=== PATIENT | female | born 1945 | race Caucasian/White ===

== ENCOUNTER 2019-05-25 10:26 | Inpatient (IN) | payer MEDICARE ==
[2019-05-25] MEDS ORDERED: Unasyn 3GM / NaCl 100ML 3 GM/100 ML IVPB IV STA (10:35)
[2019-05-25 10:55] LABS: ALBUMIN 3.9 g/dL (3.5-5.0); ANION GAP 30.3 MEQ/L (5-15); BILIRUBIN,TOTAL 1.4 mg/dL (0.2-1.3); Creatinine 1 1.14 mg/dL (0.52-1.04); Total Protein 7.1 g/dL (6.3-8.2)
[2019-05-25] MEDS ORDERED: Unasyn 3GM / NaCl 100ML 3 GM/100 ML IVPB ONE (10:56)
[2019-05-25 11:02] LABS: Hematocrit 46.6 % (35-47); Hemoglobin 14.9 gm/dl (12.0-16.0); Mean Corpuscular Hemoglobin 29.7 pg (26-32); Mean Platelet Volume 10.7 fl (6-9.5); Platelet Count 254 K/mm3 (150-450); Red Blood Count 5.01 M/mm3 (4.1-5.4); Red Cell Distribution Width 14.5 % (11.5-14.0); White Blood Count 8.6 K/mm3 (4.0-10.5)
[2019-05-25 11:08] LABS: A-aADO2 -27; ABG HEMOGLOBIN 15.5; ABG POTASSIUM 3.8 (3.5-5.1); ARTERIAL BLD GAS O2 SATURATION 100.2 % (95-100); ARTERIAL BLOOD GAS BASE EXCESS 0.5 (-2.0-2.0); ARTERIAL BLOOD GAS FIO2 21 %; ARTERIAL BLOOD GAS PCO2 23 mmHg (35-45); ARTERIAL BLOOD GAS PO2 148 mmHg (75-100); CARBOXYHEMOGLOBIN 2.7 % THgb (0.0-6.9); HCO3- 20.6 (22-28); HGB O2 SAT 96.6 g/dF (94-100); Methhemoglobin 0.9 % (1.4-1.5); paO2 pAO1 1.22
[2019-05-25] MEDS ORDERED: Merrem 1 GM IV ONE (11:08)
[2019-05-25] MEDS ORDERED: Sodium Chloride 0.9% 100 ML IVPB 100 ML IV ONE (11:08)
[2019-05-25 11:09] LABS: ARTERIAL BLOOD GAS pH 7.56 (7.35-7.45)
[2019-05-25] MEDS ORDERED: Merrem 1 GM 1 G in Sodium Chloride 100ML MINI-BAG PLUS 100 ML IV STA (11:10)
[2019-05-25] MEDS: Sodium Chloride 0.9% 1000 ML 1,000 ML IV SCH ×3 (11:13→18:34)
--- NOTE | 2019-05-25 11:16 | ERPHSYRPT ---
- History of Present Illness Time Seen by Provider: 05/25/19 11:13 Source: EMS, police Exam Limitations: clinical condition Patient Subjective Stated Complaint: pt was found on by a neighbor on front [address], she was seen by friend at 1800 last night, unsure of how long she was outside. 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 pt is very thin, has multi bruising, she has skin tear to left arm and elbow with bruising has bruising to right arms, has left eye with bruising and redenss, both knees with bruising, abrasion to nose, pupils 2mm sluggish, pt moves eys to follow nurse Physician History: pt was found on by a neighbor on [address] [facility], she was seen by friend at 1800 last night, unsure of how long she was outside. 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 and she is unable to speak and give history, Timing/Duration: today Severity: severe (temperature 81 F) Allergies/Adverse Reactions: Penicillins Allergy (Verified 05/25/19 11:07) Sulfa (Sulfonamide Antibiotics) Allergy (Verified 05/25/19 11:07) Home Medications: Unobtainable 05/25/19 [History] Hx Tetanus, Diphtheria Vaccination/Date Given: No Hx Influenza Vaccination/Date Given: No (unknown) Hx Pneumococcal Vaccination/Date Given: No Immunizations Up to Date: (unknown) - Review of Systems All Other Systems: Unable due to condition - Past Medical History Pertinent Past Medical History: Yes Other Medical History: tumor in throat - Past Surgical History Past Surgical History: (unknown) - Social History Smoking Status: Unknown if ever smoked Exposure to second hand smoke: No Drug Use: none Patient Lives Alone: Yes - Female History Hx Last Menstrual Period: psot - Nursing Vital Signs Nursing Vital Signs: Initial Vital Signs Temperature 81.5 F 05/25/19 10:28 Pulse Rate 110 L 05/25/19 10:28 Respiratory Rate 10 L 05/25/19 10:28 Blood Pressure 64/47 05/25/19 10:28 Pain Scale Pain Intensity 0 - Physical Exam General Appearance: severe distress Eye Exam: pale conjunctivae Ears, Nose, Throat Exam: dry mucous membranes Neck Exam: limited range of motion Respiratory Exam: diminished breath sounds Cardiovascular Exam: bradycardia Gastrointestinal/Abdomen Exam: soft Back Exam: decreased range of motion Neurologic Exam: disoriented, confusion Skin Exam: dry (cold), abrasion SpO2 Interpretation: hypoxic, ABG ordered, O2 applied - Course Nursing assessment & vital signs reviewed: Yes EKG Interpreted by Me: Sinus Olvin Rhythm Strip: Sinus Bradycardia - Radiology Exams Chest X-ray Interpretation: Reviewed by me, Negative Ordered Tests: Active Orders 24 hr Category Date Time Status CO2 Monitoring STAT Care 05/25/19 10:35 Active Mixer Machine Feeder STAT Care 05/25/19 10:37 Active Catheter-Hodge Kinsey STAT Care 05/25/19 10:35 Active EKG-ER Only STAT Care 05/25/19 10:35 Active IV Insertion STAT Care 05/25/19 10:35 Active IV Insertion-2nd Peripheral STAT Care 05/25/19 10:35 Active Oxygen-ED Only Nasal Cannula 2 lpm Care 05/25/19 10:35 Active Rectal Temperature STAT Care 05/25/19 10:35 Active CHEST 1 VIEW (PORTABLE) Stat Exams 05/25/19 10:37 Taken HIPS EMILIA(2V) INCL PEL IF DONE Stat Exams 05/25/19 12:13 Ordered ARTERIAL BLOOD GASES Stat Lab 05/25/19 10:35 Results BLOOD CULTURE Stat Lab 05/25/19 10:55 Received CBC W DIFF Stat Lab 05/25/19 10:36 Completed CMP Stat Lab 05/25/19 10:36 Completed CULTURE,URINE Stat Lab 05/25/19 11:10 Received Lactic Acid Stat Lab 05/25/19 10:36 Results Manual Differential NC Stat Lab 05/25/19 10:36 Completed UA W/RFX UR CULTURE Stat Lab 05/25/19 11:10 Completed Transfer Order Routine Transfer 05/25/19 Ordered Medication Summary Generic Name Dose Route Start Last Admin Trade Name Freq PRN Reason Stop Dose Admin Sodium Chloride 1,000 mls @ 999 mls/hr 05/25/19 10:45 05/25/19 12:46 Sodium Chloride 0.9% 1000 Ml IV 05/25/19 12:45 999 mls/hr .Q1H1M MONIKA Administration Discontinued Medications Generic Name Dose Route Start Last Admin Trade Name Freq PRN Reason Stop Dose Admin Ampicillin Sodium/Sulbactam Sodium 3 gm in 100 mls @ 200 mls/hr 05/25/19 10: 35 05/25/19 11:09 Unasyn 3gm / Nacl 100ml IV 05/25/19 11:04 Not Given STAT STA Ampicillin Sodium/Sulbactam Sodium Confirm 05/25/19 10:56 Unasyn 3gm / Nacl 100ml Administered 05/25/19 10:57 Dose 3 gm in 100 mls @ ud .ROUTE .STK-MED ONE Sodium Chloride Confirm 05/25/19 11:08 Sodium Chloride 0.9% 100 Ml Ivpb Administered 05/25/19 11:09 Dose 100 mls @ ud IV .STK-MED ONE Meropenem 1 g/ Sodium Chloride 100 mls @ 200 mls/hr 05/25/19 11:10 05/25/19 11:12 IV 05/25/19 11:39 100 ml/hr STAT STA 100 mls/hr Administration Meropenem Confirm 05/25/19 11:08 Merrem 1 Gm Administered 05/25/19 11:09 Dose 1 g IV .STK-MED ONE Lab/Rad Data: Laboratory Result Diagrams 05/25/19 10:36 05/25/19 10:36 Laboratory Results 05/25/19 05/25/19 05/25/19 Range/Units 11:10 10:36 10:36 WBC 8.6 (4.0-10.5) K/mm3 RBC 5.01 (4.1-5.4) M/mm3 Hgb 14.9 (12.0-16.0) gm/dl Hct 46.6 (35-47) % MCV 93.0 (78-100) fl MCH 29.7 (26-32) pg MCHC 32.0 (32-36) g/dl RDW 14.5 H (11.5-14.0) % Plt Count 254 (150-450) K/mm3 MPV 10.7 H (6-9.5) fl Segmented Neutrophils 84 H (36.0-66.0) % Band Neutrophils 4 H (0.0-2.0) % Lymphocytes (Manual) 12 L (24-44) % Toxic Granulation 1+ Platelet Estimate NORMAL (NORMAL) RBC Morphology ABNORMAL Anisocytosis 1+ Puncture Site pCO2 (35-45) mmHg pO2 (75-100) mmHg Base Excess (-2.0-2.0) O2 Saturation (94-100) g/dF ABG pH (7.35-7.45) ABG HCO3 (22-28) ABG O2 Sat (Measured) (95-100) % Liu Test A-a Gradient a/A Ratio Hemoglobin Carboxyhemoglobin (0.0-6.9) % THgb Methemoglobin (1.4-1.5) % Potassium 4.0 (3.5-5.1) Temperature C POC O2 Flow Rate % Sodium 143 (137-145) mmol/L Chloride 96 L (98-107) mmol/L Carbon Dioxide 20 L (22-30) mmol/L Anion Gap 30.3 H (5-15) MEQ/L BUN 23 H (7-17) mg/dL Creatinine 1.14 H (0.52-1.04) mg/dL Estimated GFR 49.3 ML/MIN Glucose 156 H (74-106) mg/dL Lactic Acid (0.4-2.0) Calcium 11.0 H (8.4-10.2) mg/dL Total Bilirubin 1.40 H (0.2-1.3) mg/dL AST 47 H (14-36) U/L ALT 24 (0-35) U/L Alkaline Phosphatase 86 (38-126) U/L Serum Total Protein 7.1 (6.3-8.2) g/dL Albumin 3.9 (3.5-5.0) g/dL Urine Color NELA (YELLOW) Urine Appearance SLIGHTLY CLOUDY (CLEAR) Urine pH 6.0 (5-6) Ur Specific Bluefield 1.020 (1.005-1.025) Urine Protein NEGATIVE (Negative) Urine Ketones SMALL (NEGATIVE) Urine Blood NEGATIVE (0-5) Abimael/ul Urine Nitrite NEGATIVE (NEGATIVE) Urine Bilirubin NEGATIVE (NEGATIVE) Urine Urobilinogen 4 (0-1) mg/dL Ur Leukocyte Esterase NEGATIVE (NEGATIVE) Urine WBC (Auto) 0-2 (0-5) /HPF Urine RBC (Auto) NONE (0-2) /HPF U Hyaline Cast (Auto) 0-2 (0-2) /LPF U Epithel Cells (Auto) NONE (FEW) /HPF Urine Bacteria (Auto) NONE (NEGATIVE) /HPF Urine Mucus (Auto) SLIGHT (NEGATIVE) /HPF Urine Culture Reflexed ORDERED SEPARATELY (NO) Urine Glucose NEGATIVE (NEGATIVE) mg/dL 05/25/19 05/25/19 Range/Units 10:36 10:35 WBC (4.0-10.5) K/mm3 RBC (4.1-5.4) M/mm3 Hgb (12.0-16.0) gm/dl Hct (35-47) % MCV (78-100) fl MCH (26-32) pg MCHC (32-36) g/dl RDW (11.5-14.0) % Plt Count (150-450) K/mm3 MPV (6-9.5) fl Segmented Neutrophils (36.0-66.0) % Band Neutrophils (0.0-2.0) % Lymphocytes (Manual) (24-44) % Toxic Granulation Platelet Estimate (NORMAL) RBC Morphology Anisocytosis Puncture Site Pending pCO2 23 L (35-45) mmHg pO2 148 H* (75-100) mmHg Base Excess 0.5 (-2.0-2.0) O2 Saturation 96.6 (94-100) g/dF ABG pH 7.56 H* (7.35-7.45) ABG HCO3 20.6 L (22-28) ABG O2 Sat (Measured) 100.2 H (95-100) % Liu Test Pending A-a Gradient -27 a/A Ratio 1.22 Hemoglobin 15.5 Carboxyhemoglobin 2.7 (0.0-6.9) % THgb Methemoglobin 0.9 L (1.4-1.5) % Potassium 3.8 (3.5-5.1) Temperature 37.0 C POC O2 Flow Rate 21 % Sodium (137-145) mmol/L Chloride (98-107) mmol/L Carbon Dioxide (22-30) mmol/L Anion Gap (5-15) MEQ/L BUN (7-17) mg/dL Creatinine (0.52-1.04) mg/dL Estimated GFR ML/MIN Glucose (74-106) mg/dL Lactic Acid 13.0 H (0.4-2.0) Calcium (8.4-10.2) mg/dL Total Bilirubin (0.2-1.3) mg/dL AST (14-36) U/L ALT (0-35) U/L Alkaline Phosphatase (38-126) U/L Serum Total Protein (6.3-8.2) g/dL Albumin (3.5-5.0) g/dL Urine Color (YELLOW) Urine Appearance (CLEAR) Urine pH (5-6) Ur Specific Blue[place] (1.005-1.025) Urine Protein (Negative) Urine Ketones (NEGATIVE) Urine Blood (0-5) Abimael/ul Urine Nitrite (NEGATIVE) Urine Bilirubin (NEGATIVE) Urine Urobilinogen (0-1) mg/dL Ur Leukocyte Esterase (NEGATIVE) Urine WBC (Auto) (0-5) /HPF Urine RBC (Auto) (0-2) /HPF U Hyaline Cast (Auto) (0-2) /LPF U Epithel Cells (Auto) (FEW) /HPF Urine Bacteria (Auto) (NEGATIVE) /HPF Urine Mucus (Auto) (NEGATIVE) /HPF Urine Culture Reflexed (NO) Urine Glucose (NEGATIVE) mg/dL - Progress Progress: unchanged Discussed with : Stormy Counseled pt/family regarding: lab results, diagnosis, need for follow-up, rad results - Departure Departure Disposition: In-patient Admission Clinical Impression: Hypothermia due to cold environment, Lactic acidosis Condition: Fair Critical Care Time: Yes Critical Care Time(excluding separately billable procedures): Critical 75-104 mins Referrals: ABBI PUGA MD [Primary Care Provider] - Instructions: Hypothermia
[2019-05-25 11:35] LABS: Appearance SLIGHTLY CLOUDY (CLEAR); Bilirubin NEGATIVE (NEGATIVE); Blood NEGATIVE Ery/ul (0-5); Glucose NEGATIVE (NEGATIVE); Hyaline Casts 0-2 /LPF (0-2); Ketones SMALL (NEGATIVE); Leukocyte Esterase NEGATIVE (NEGATIVE); Mucus SLIGHT /HPF (NEGATIVE); Nitrite NEGATIVE (NEGATIVE); Protein,Urine Dip NEGATIVE (Negative); Urobilinogen 4 mg/dL (0-1); WBC 0-2 /HPF (0-5)
[2019-05-25 11:44] LABS: ANISOCYTOSIS 1+; BAND 4 % (0.0-2.0); Lymphocytes 12 % (24-44); Neutrophils 84 % (36.0-66.0); Platelet Estimate NORMAL (NORMAL); Total Cells Counted 100; Toxic Granulation 1+
[2019-05-25] MEDS ORDERED: TYLENOL 325 MG PO PRN (14:16)
--- NOTE | 2019-05-25 20:41 | XRAY ---
Indication: Unresponsive. Possible sepsis. Comparison: None. Portable chest hyperinflated and clear. Heart and mediastinal structures within normal limits. Bony thorax intact with mild osteopenia and degenerative changes. Impression: Nonacute hyperinflated chest.
--- NOTE | 2019-05-25 20:43 | XRAY ---
Indication: Pain following fall. Comparison: None AP pelvis and 2 views of the left and right hip demonstrates osteopenia, old right hip fracture with partially visualized intact orthopedic hardware, advanced right hip degenerative arthropathy, lower lumbar degenerative spondylosis, scattered vascular calcifications, left pelvic surgical clips, and Kinsey catheter. No other bony, articular, or soft tissue abnormalities. Comment: Preliminary interpretation was made by [facility]. No critical discrepancy.
[2019-05-25] MEDS: Merrem 1 GM 1 G in Sodium Chloride 100ML MINI-BAG PLUS 100 ML IV SCH (21:53)
[2019-05-25] MEDS: MORPHINE SULFATE 2 MG INJ IV PRN (22:06)
[2019-05-26] MEDS: MORPHINE SULFATE 2 MG INJ IV PRN ×3 (03:39→15:41)
[2019-05-26 04:38] LABS: Absolute Neutrophil Ct (ANC) 19.26 (1.4-6.9); Basophil (Absolute #) 0.01 (0-0.4); Eosinophil (Absolute #) 0.01 (0-0.5); Lymphocyte (Absolute #) 0.38 (1.0-4.6); Lymphocytes % 1.8 % (24.0-44.0); Mean Cell Volume 94.5 fl (78-100); Mean Corpuscular Hemoglobin 29.6 pg (26-32); Mean Corpuscular Hgb Concent. 31.3 g/dl (32-36); Mean Platelet Volume 10.7 fl (6-9.5); Monocyte (Absolute #) 1.14 (0.0-1.3); Monocytes % 5.5 % (0.0-12.0); Neutrophil % 92.7 % (36.0-66.0); Platelet Count 187 K/mm3 (150-450); Red Blood Count 4.02 M/mm3 (4.1-5.4); Red Cell Distribution Width 14.9 % (11.5-14.0); White Blood Count 20.8 K/mm3 (4.0-10.5)
[2019-05-26 04:45] LABS: Hemoglobin 11.9 gm/dl (12.0-16.0)
[2019-05-26 04:50] LABS: ALBUMIN 2.7 g/dL (3.5-5.0); ALKALINE PHOSPHATASE 61 U/L (38-126); BLOOD UREA NITROGEN 26 mg/dL (7-17); CHLORIDE 107 mmol/L (98-107); CK-Creatinine Phosphokinase 1329 U/L (30-135); Calcium 9.7 mg/dL (8.4-10.2); Carbon Dioxide 32 mmol/L (22-30); Glucose 82 mg/dL (74-106); SGOT/AST 114 U/L (14-36); SGPT/ALT 30 U/L (0-35); SODIUM 147 mmol/L (137-145); Total Protein 5.4 g/dL (6.3-8.2)
[2019-05-26 05:06] LABS: Potassium 2.7 mmol/L (3.5-5.1)
[2019-05-26] MEDS: Sodium Chloride 0.9% 1000 ML 1,000 ML IV SCH (05:50)
[2019-05-26] MEDS: POTASSIUM CHLORIDE 20 mEq IN WATER 100ML 20 MEQ/100 ML BAG IV SCH ×2 (05:52→11:20)
[2019-05-26 07:07] LABS: Slide Review 1 YES
[2019-05-26] MEDS: Merrem 1 GM 1 G in Sodium Chloride 100ML MINI-BAG PLUS 100 ML IV SCH ×2 (10:45→21:00)
[2019-05-26 11:12] LABS: ABG SITE LEFT RADIAL; ALLEN TEST OK? YES
--- NOTE | 2019-05-26 13:22 | PCM.HP ---
History of Present Illness - Chief Complaint Chief Complaint: HYPOTHERMIA History of Present Illness: is a 74 year old female pt with no local MD (saw [facility] physicians in the remote past) who was found down at home. She apparently fell on her porch, onto her R hip, and was unable to get up or get inside for about 3 hours. Owing to the cold weather, when brought to ER her rectal temp was 81 degrees F. As of 1828 her temp was 99.1, and it has normalized from there. Her CT pelvis was neg for fx. On admission her lactate was >7; now it is nl. WBC were 8.6 initially, and now 20.8. She denies any pain at rest, but does seem to be in discomfort when moved by the nurses. Potassium was 2.7 this morning; repleting IV. This is a lady who does not like to see medical attention, who weighs about 75lb and has lost 15 lb in the past 1-2 months alone. She has noticed a mass on the left side of her neck and inside her throat for some time; feeling that doctors could not help and she would not want any intervention, she has not sought any medical attention for that. She can only eat watered down mashed potatoes and gravy at this point; even eggs are too substantial to be swallowed. She also has a very difficult time speaking; can make some noises. Pt does seem to completely understand when spoken too. Pt did agree to get a CT head and neck this morning; that is pending. During our interview she indicated that she would not be interested in TPN or a G- tube. She did consent to receive lovenox SQ. - Review of Systems Constitutional: Weakness, Weight Loss Ears, Nose, & Throat: Other (choking, unable to swallow. Mass on neck and in throat.) All Other Systems: Unable due to condition (pt unable to talk and too weak to write) Medications & Allergies Home Medications: Home Medication List No Reportable Medications [No Reported Medications] 05/25/19 [History Confirmed 05/25/19] Allergies/Adverse Reactions: Allergies Allergy/AdvReac Type Severity Reaction Status Date / Time Penicillins Allergy Verified 05/25/19 11:07 Sulfa (Sulfonamide Allergy Verified 05/25/19 11:07 Antibiotics) - Past Medical History Past Medical History: Yes ENT History: Cataracts Musculoskelatal History: Fractures Comment: tumor in throat - Female History Hx Last Menstrual Period: psot Are you now?: No - Past Surgical History Past Surgical History: Yes (unknown) Musculskeletal Surgical Hx: Orthopedic Surgery Female Surgical History: Hysterectomy, Dilation & Curettage Other Surgical History: RIGHT HIP BREAK REPAIR WITH RODS AND PLATE. - Social History Smoking Status: Never smoker Exposure to second hand smoke: No Alcohol: None Drug Use: none - Physical Exam Vital Signs: Vital Signs - 24 hr Temp Pulse Resp BP BP Pulse Ox 05/26/19 09:24 146/72 05/26/19 08:11 91 L 05/26/19 07:53 97.5 F 66 16 126/61 97 05/26/19 03:48 97.6 F 67 14 133/59 98 05/25/19 20:00 98.6 F 81 20 110/52 96 05/25/19 18:29 99.1 F 86 18 105/60 99 05/25/19 16:00 96.8 F 104 H 18 93/71 100 05/25/19 15:23 93.2 F 92 H 18 151/93 100 05/25/19 13:51 89.6 F 105 H 16 169/88 98 Oxygen-Last 24 hours O2 Percentage 2 Liters = 28% O2 Percentage 2 Liters = 28% O2 Percentage 2 Liters = 28% General Appearance: no apparent distress, alert Neurologic Exam: cooperative, other (mouths a few words and makes a soft noise; does nod or shake head to indicate understanding of spoken word.) Eye Exam: other (L eyelids and extending superiorly and inferiorly with macular purple discoloration) Ears, Nose, Throat Exam: moist mucous membranes Neck Exam: mass (L side of neck there is a double headed hard fixed mass, approx 4 cm at the widest, extending approx 8cm long. nttp. no erythema or ulcerations. no fluctuance.) Respiratory Exam: normal breath sounds, lungs clear, No crackles/rales, No rhonchi, No wheezing Cardiovascular Exam: regular rate/rhythm, normal heart sounds, No murmur Gastrointestinal/Abdomen Exam: soft, normal bowel sounds, No tenderness, No distention, No mass, No guarding, No rebound Extremity Exam: No pedal edema, No swelling Skin Exam: normal color, warm, dry, No rash Wound Assessment: Skin/Wound Assessment Wound/Incision Assessment Start: 05/25/19 15: 58 Text: Status: Active Freq: Q6H Protocol: Document 05/26/19 08:00 (Rec: 05/26/19 08:29 [id number]) Wound Photo Photo Taken No Results - Labs Lab/Micro Results: Lab Results-Last 24 Hours 05/25/19 05/25/19 05/26/19 Range/Units 10:35 11:30 04:39 WBC 20.8 H (4.0-10.5) K/mm3 RBC 4.02 L (4.1-5.4) M/mm3 Hgb 11.9 L D (12.0-16.0) gm/dl Hct 38.0 (35-47) % MCV 94.5 (78-100) fl MCH 29.6 (26-32) pg MCHC 31.3 L (32-36) g/dl RDW 14.9 H (11.5-14.0) % Plt Count 187 (150-450) K/mm3 MPV 10.7 H (6-9.5) fl Gran % 92.7 H (36.0-66.0) % Eos # (Auto) 0.01 (0-0.5) Absolute Lymphs (auto) 0.38 L (1.0-4.6) Absolute Monos (auto) 1.14 (0.0-1.3) Lymphocytes % 1.8 L (24.0-44.0) % Monocytes % 5.5 (0.0-12.0) % Eosinophils % 0.0 (0.00-5.0) % Basophils % 0.0 (0.0-0.4) % Absolute Granulocytes 19.26 H (1.4-6.9) Basophils # 0.01 (0-0.4) Puncture Site LEFT RADIAL Liu Test YES Sodium (137-145) mmol/L Potassium (3.5-5.1) mmol/L Chloride (98-107) mmol/L Carbon Dioxide (22-30) mmol/L Anion Gap (5-15) MEQ/L BUN (7-17) mg/dL Creatinine (0.52-1.04) mg/dL Estimated GFR ML/MIN Glucose (74-106) mg/dL Lactic Acid (0.4-2.0) Calcium (8.4-10.2) mg/dL Total Bilirubin (0.2-1.3) mg/dL AST (14-36) U/L ALT (0-35) U/L Alkaline Phosphatase (38-126) U/L Creatine Kinase 480 H (30-135) U/L Serum Total Protein (6.3-8.2) g/dL Albumin (3.5-5.0) g/dL Slides for Path Review YES 05/26/19 05/26/19 Range/Units 04:39 11:15 WBC (4.0-10.5) K/mm3 RBC (4.1-5.4) M/mm3 Hgb (12.0-16.0) gm/dl Hct (35-47) % MCV (78-100) fl MCH (26-32) pg MCHC (32-36) g/dl RDW (11.5-14.0) % Plt Count (150-450) K/mm3 MPV (6-9.5) fl Gran % (36.0-66.0) % Eos # (Auto) (0-0.5) Absolute Lymphs (auto) (1.0-4.6) Absolute Monos (auto) (0.0-1.3) Lymphocytes % (24.0-44.0) % Monocytes % (0.0-12.0) % Eosinophils % (0.00-5.0) % Basophils % (0.0-0.4) % Absolute Granulocytes (1.4-6.9) Basophils # (0-0.4) Puncture Site Liu Test Sodium 147 H (137-145) mmol/L Potassium 2.7 L* D (3.5-5.1) mmol/L Chloride 107 (98-107) mmol/L Carbon Dioxide 32 H (22-30) mmol/L Anion Gap 11.0 (5-15) MEQ/L BUN 26 H (7-17) mg/dL Creatinine 0.70 (0.52-1.04) mg/dL Estimated GFR > 60.0 ML/MIN Glucose 82 (74-106) mg/dL Lactic Acid 1.7 (0.4-2.0) Calcium 9.7 (8.4-10.2) mg/dL Total Bilirubin 0.90 (0.2-1.3) mg/dL AST 114 H (14-36) U/L ALT 30 (0-35) U/L Alkaline Phosphatase 61 (38-126) U/L Creatine Kinase 1329 H (30-135) U/L Serum Total Protein 5.4 L (6.3-8.2) g/dL Albumin 2.7 L (3.5-5.0) g/dL Slides for Path Review Microbiology 05/25/19 11:10 Urine Culture - Preliminary Catherized NO GROWTH TO DATE - Radiology Impressions Radiology Exams & Impressions: Radiology Procedures Category Date Time Status CHEST 1 VIEW (PORTABLE) Stat Exams 05/25/19 10:37 Completed HEAD W/WO CONTRAST [CT] Routine Exams 05/26/19 08:15 Taken HIPS EMILIA(2V) INCL PEL IF DONE Stat Exams 05/25/19 12:13 Completed NECK W/WO CONTRAST [CT] Routine Exams 05/26/19 08:15 Taken - Other Procedures and Tests Respiratory Therapy 05/25/19 14:16 Oxygen Nasal Cannula 2 lpm Assessment/Plan (1) Neck mass Current Visit: Yes Status: Acute Assessment & Plan: Head/neck cT pending. I encouraged pt to at least consult with surgery and see what recommendations would be. I'm unsure if she'll consent to that. Code(s): R22.1 - LOCALIZED SWELLING, MASS AND LUMP, NECK (2) Malnutrition Current Visit: Yes Status: Chronic Qualifiers: Malnutrition type: protein-calorie malnutrition Assessment & Plan: If pt ends up deciding on no action for her tumor, she is interested in hospice. Perhaps we could try Ensure or Boost. Code(s): E46 - UNSPECIFIED PROTEIN-CALORIE MALNUTRITION (3) Hypothermia due to cold environment Current Visit: Yes Status: Acute Code(s): T68.XXXA - HYPOTHERMIA, INITIAL ENCOUNTER (4) Lactic acidosis Current Visit: Yes Status: Resolved Code(s): E87.2 - ACIDOSIS
[2019-05-26 14:16] LABS: Absolute Neutrophil Ct (ANC) 18.64 (1.4-6.9); Basophil (Absolute #) 0 (0-0.4); Eosinophil % 0.1 % (0.00-5.0); Eosinophil (Absolute #) 0.01 (0-0.5); Hematocrit 42.3 % (35-47); Hemoglobin 13.1 gm/dl (12.0-16.0); Lymphocyte (Absolute #) 0.31 (1.0-4.6); Lymphocytes % 1.6 % (24.0-44.0); Mean Cell Volume 94.6 fl (78-100); Mean Corpuscular Hemoglobin 29.3 pg (26-32); Mean Platelet Volume 10.5 fl (6-9.5); Monocyte (Absolute #) 1.01 (0.0-1.3); Monocytes % 5.1 % (0.0-12.0); Neutrophil % 93.2 % (36.0-66.0); Platelet Count 187 K/mm3 (150-450); Red Blood Count 4.47 M/mm3 (4.1-5.4); Red Cell Distribution Width 15.1 % (11.5-14.0)
[2019-05-26 14:41] LABS: ALBUMIN 3.1 g/dL (3.5-5.0); ALKALINE PHOSPHATASE 70 U/L (38-126); ANION GAP 12.2 MEQ/L (5-15); BLOOD UREA NITROGEN 23 mg/dL (7-17); CHLORIDE 108 mmol/L (98-107); CK-Creatinine Phosphokinase 1440 U/L (30-135); Carbon Dioxide 30 mmol/L (22-30); Creatinine 1 0.61 mg/dL (0.52-1.04); Glucose 75 mg/dL (74-106); MAGNESIUM 2.1 mg/dL (1.6-2.3); Potassium 3.3 mmol/L (3.5-5.1); SGOT/AST 157 U/L (14-36); SGPT/ALT 47 U/L (0-35); SODIUM 147 mmol/L (137-145)
[2019-05-26] MEDS: ENOXAPARIN SODIUM SQ SCH (15:41)
[2019-05-26] MEDS: Sodium Chloride 0.9% W/ 20 mEq KCl/LITER 1,000 ML IV SCH (15:53)
[2019-05-26 16:06] LABS: Slide Review 1 YES
--- NOTE | 2019-05-26 20:17 | XRAY ---
Indication: Trouble talking and swallowing following fall. Multiple contiguous axial images obtained through the head prior to and following 60 cc Isovue-370 contrast as ordered. Comparison: None Age-appropriate global atrophy and mild/moderate periventricular degenerative microvascular ischemia bilaterally. No acute intracranial hemorrhage, abnormal extra-axial fluid collection, or mass effect. Postcontrast images are negative for abnormal enhancing intra or extra-axial mass. Fourth ventricle is midline without hydrocephalus. Bony calvarium intact. Visualized paranasal sinuses and mastoid air cells are clear. There is incompletely visualized rim-enhancing oropharyngeal mass. Also incompletely visualized left neck enhancing metastatic lymphadenopathy measuring at least 4.6 x 3.2 cm. Impression: 1. Nonacute senile brain. 2. Incompletely visualized oropharyngeal mass and left neck metastatic lymphadenopathy further detailed on same-day CT neck exam. Comment: Preliminary interpretation was made by [facility]. No critical discrepancy. CTDI 56.24
--- NOTE | 2019-05-26 20:22 | XRAY ---
Indication: Trouble talking and swallowing following fall. Multiple contiguous axial images obtained through the neck prior to and following 60 cc Isovue-370 contrast as ordered. Comparison: None CT head reported separately. Patient is edentulous. There is a large heterogeneously enhancing oropharyngeal mass also involving the hard palate and uvula. Measurement is difficult to ascertain but at least 2.4 x 4.5 x 5.0 cm in greatest AP, transverse, and CC projections. Also extensive enhancing cervical and submandibular metastatic lymphadenopathy, left greater than right. Largest bulky adenopathy is on the left measuring at least 5.5 x 3.6 x 4.9 cm and also appears to infiltrate the adjacent parotid gland. Bulky adenopathy also slightly erodes the posterior cortex of the mandible at the level of the ramus. Major arteries and veins are normal in course and caliber. Mild left carotid bulb calcifications. Thyroid gland enhances homogeneously. Lung apices are clear. Underlying cervical spine demonstrates osteopenia, cervical lordotic straightening, and mild/moderate multilevel degenerative spondylosis. 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 Comment: Preliminary interpretation was made by [facility]. No critical discrepancy. CTDI 56.24
[2019-05-27] MEDS: MORPHINE SULFATE 2 MG INJ IV PRN ×3 (03:04→15:54)
[2019-05-27] MEDS: Sodium Chloride 0.9% W/ 20 mEq KCl/LITER 1,000 ML IV SCH ×3 (03:04→23:38)
--- NOTE | 2019-05-27 09:09 | PCM.DS ---
Discharge Summary Date of Admission: 05/25/19 14:14 Admitting Physician: ABBI PUGA Primary Care Provider: ABBI PUGA Allergies Allergies Penicillins Allergy (Verified 05/25/19 11:07) Sulfa (Sulfonamide Antibiotics) Allergy (Verified 05/25/19 11:07) Hospital Summary - Hospital Course Hospital Course: is a 74 year old female pt with no local MD (saw [facility] physicians in the remote past) who was found down at home. She apparently fell on her porch, onto her R hip, and was unable to get up or get inside for about 3 hours. Owing to the cold weather, when brought to ER her rectal temp was 81 degrees F. As of 1828 her temp was 99.1, and it has normalized from there. Her CT pelvis was neg for fx. On admission her lactate was >7 but normalized. WBC were 8.6 initially, then elevated to 20.8. She denies any pain at rest, but does seem to be in discomfort when she moves. This is a lady who does not like to seek medical attention, who weighs about 75lb and has lost 15 lb in the past 1-2 months alone. She has noticed a mass on the left side of her neck and inside her throat for some time; feeling that doctors could not help and she would not want any intervention, she has not sought any medical attention for that. She has a very difficult time speaking but can say some words. Pt does seem to completely understand when spoken too. Pt did agree to get a CT head and neck which did show a mass which was concerning for metastasis. I explained to her that on the scan there was concern for cancer. Initially she said we could consult surgery just for their opinion, but then she said "I want to go home" and indicated she did not want a surgery consult. She wants to go home on hospice. - Vitals & Intake/Output Vital Signs: Vital Signs Temperature 97.7 F 05/27/19 08:00 Pulse Rate 66 05/27/19 08:00 Respiratory Rate 19 05/27/19 08:00 Blood Pressure 172/84 05/27/19 08:00 O2 Sat by Pulse Oximetry 93 L 05/27/19 08:00 Oxygen-Last Documented O2 Percentage 2 Liters = 28% Intake & Output: Intake & Output 05/24/19 05/25/19 05/26/19 05/27/19 11:59 11:59 11:59 11:59 Intake Total 1398 2915 Output Total 600 1000 Balance 798 1915 Weight 36.287 kg 34.7 kg - Lab Result Diagrams: 05/26/19 14:16 05/26/19 17:10 Lab Results-Last 24 Hrs: Lab Results-Last 24 Hours 05/25/19 05/26/19 05/26/19 Range/Units 10:35 11:15 14:16 WBC 20.0 H (4.0-10.5) K/mm3 RBC 4.47 (4.1-5.4) M/mm3 Hgb 13.1 (12.0-16.0) gm/dl Hct 42.3 (35-47) % MCV 94.6 (78-100) fl MCH 29.3 (26-32) pg MCHC 31.0 L (32-36) g/dl RDW 15.1 H (11.5-14.0) % Plt Count 187 (150-450) K/mm3 MPV 10.5 H (6-9.5) fl Gran % 93.2 H (36.0-66.0) % Eos # (Auto) 0.01 (0-0.5) Absolute Lymphs (auto) 0.31 L (1.0-4.6) Absolute Monos (auto) 1.01 (0.0-1.3) Lymphocytes % 1.6 L (24.0-44.0) % Monocytes % 5.1 (0.0-12.0) % Eosinophils % 0.1 (0.00-5.0) % Basophils % 0.0 (0.0-0.4) % Absolute Granulocytes 18.64 H (1.4-6.9) Basophils # 0 (0-0.4) Puncture Site LEFT RADIAL Liu Test YES Sodium (137-145) mmol/L Potassium (3.5-5.1) mmol/L Chloride (98-107) mmol/L Carbon Dioxide (22-30) mmol/L Anion Gap (5-15) MEQ/L BUN (7-17) mg/dL Creatinine (0.52-1.04) mg/dL Estimated GFR ML/MIN Glucose (74-106) mg/dL Lactic Acid 1.7 (0.4-2.0) Calcium (8.4-10.2) mg/dL Magnesium (1.6-2.3) mg/dL Total Bilirubin (0.2-1.3) mg/dL AST (14-36) U/L ALT (0-35) U/L Alkaline Phosphatase (38-126) U/L Creatine Kinase (30-135) U/L Serum Total Protein (6.3-8.2) g/dL Albumin (3.5-5.0) g/dL Slides for Path Review YES 05/26/19 05/26/19 Range/Units 14:16 17:10 WBC (4.0-10.5) K/mm3 RBC (4.1-5.4) M/mm3 Hgb (12.0-16.0) gm/dl Hct (35-47) % MCV (78-100) fl MCH (26-32) pg MCHC (32-36) g/dl RDW (11.5-14.0) % Plt Count (150-450) K/mm3 MPV (6-9.5) fl Gran % (36.0-66.0) % Eos # (Auto) (0-0.5) Absolute Lymphs (auto) (1.0-4.6) Absolute Monos (auto) (0.0-1.3) Lymphocytes % (24.0-44.0) % Monocytes % (0.0-12.0) % Eosinophils % (0.00-5.0) % Basophils % (0.0-0.4) % Absolute Granulocytes (1.4-6.9) Basophils # (0-0.4) Puncture Site Liu Test Sodium 147 H (137-145) mmol/L Potassium 3.3 L D 3.3 L (3.5-5.1) mmol/L Chloride 108 H (98-107) mmol/L Carbon Dioxide 30 (22-30) mmol/L Anion Gap 12.2 (5-15) MEQ/L BUN 23 H (7-17) mg/dL Creatinine 0.61 (0.52-1.04) mg/dL Estimated GFR > 60.0 ML/MIN Glucose 75 (74-106) mg/dL Lactic Acid (0.4-2.0) Calcium 10.0 (8.4-10.2) mg/dL Magnesium 2.1 (1.6-2.3) mg/dL Total Bilirubin 0.90 (0.2-1.3) mg/dL AST 157 H (14-36) U/L ALT 47 H (0-35) U/L Alkaline Phosphatase 70 (38-126) U/L Creatine Kinase 1440 H (30-135) U/L Serum Total Protein 6.0 L (6.3-8.2) g/dL Albumin 3.1 L (3.5-5.0) g/dL Slides for Path Review Micro Results-Entire Visit: Microbiology 05/25/19 11:10 Urine Culture - Final Catherized NO GROWTH 05/25/19 11:27 Blood Culture - Preliminary Blood NO GROWTH TO DATE 05/25/19 10:55 Blood Culture - Preliminary Blood NO GROWTH TO DATE - Radiology Exams Ordered Rad Exams-Entire Visit: Radiology Procedures Category Date Time Status CHEST 1 VIEW (PORTABLE) Stat Exams 05/25/19 10:37 Completed HEAD W/WO CONTRAST [CT] Routine Exams 05/26/19 08:15 Completed HIPS EMILIA(2V) INCL PEL IF DONE Stat Exams 05/25/19 12:13 Completed NECK W/WO CONTRAST [CT] Routine Exams 05/26/19 08:15 Completed - Procedures and Test Procedures and Tests throughout Hospitalization: Therapy Orders & Screens 05/25/19 14:16 Oxygen Nasal Cannula 2 lpm Comment: 05/25/19 15:58 ST Screen per Nursing Assess once Comment: Protocol Order Physician Instructions: Greater than [address] Admission Screening Reason For Exam: Triggered on Admission Diagnosis: HYPOTHERMIA CVA/Dyshpagia/Aphasia: No Cognitive Deficits: Yes Dehydration/Nutrition Deficit: Yes Reflux: No Oral-Motor Difficulties: No Pneumonia: No [facility] Resident: No Total Points: 8 Discharge Exam General Appearance: mild distress (with moving), alert, other (superior and inferior to L eye, macular purple discoloration) Neurologic Exam: cooperative, other (smiles, nods, interacts appropriately) Neck Exam: other (mass on neck; not re-examined this morning) Respiratory Exam: normal breath sounds, lungs clear, No crackles/rales, No rhonchi Cardiovascular Exam: regular rate/rhythm, normal heart sounds, No murmur Gastrointestinal/Abdomen Exam: soft, normal bowel sounds, No tenderness, No distention, No mass, No guarding, No rebound Extremity Exam: normal inspection, other (scattered abrasions, healing, and bruises), No pedal edema, No swelling Wound Assessment: Skin/Wound Assessment Wound/Incision Assessment Start: 05/25/19 15: 58 Text: Status: Active Freq: Q6H Protocol: Document 05/27/19 02:00 BW (Rec: 05/27/19 03:08 BW [id number]) Wound Photo Photo Taken No Final Diagnosis/Problem List - Final Discharge Diagnosis/Problem (1) Neck mass Current Visit: Yes Status: Acute Assessment & Plan: Likely cancer. Pt wants to go home on hospice - discharge planning is working on that. Code(s): R22.1 - LOCALIZED SWELLING, MASS AND LUMP, NECK (2) Malnutrition Current Visit: Yes Status: Chronic Code(s): E46 - UNSPECIFIED PROTEIN- CALORIE MALNUTRITION (3) Hypothermia due to cold environment Current Visit: Yes Status: Resolved Code(s): T68.XXXA - HYPOTHERMIA, INITIAL ENCOUNTER - Discharge Disposition: Home, Self-Care Condition: Fair Prescriptions: No Action No Reportable Medications [No Reported Medications] Follow up with: ABBI PUGA MD [Primary Care Provider] - 1 Week
[2019-05-27] MEDS: Merrem 1 GM 1 G in Sodium Chloride 100ML MINI-BAG PLUS 100 ML IV SCH ×2 (10:08→21:34)
[2019-05-27] MEDS: ENOXAPARIN SODIUM SQ SCH (10:08)
[2019-05-28] MEDS: MORPHINE SULFATE 2 MG INJ IV PRN ×2 (03:58→09:25)
[2019-05-28 05:12] VITALS: O2SAT 94
[2019-05-28 07:46] VITALS: BP 175/73; PULSE 61
--- NOTE | 2019-05-28 08:19 | PCM.DS ---
Discharge Summary Date of Admission: 05/25/19 14:14 Admitting Physician: ABBI PUGA Primary Care Provider: ABBI PUGA Allergies Allergies Penicillins Allergy (Verified 05/25/19 11:07) Sulfa (Sulfonamide Antibiotics) Allergy (Verified 05/25/19 11:07) Hospital Summary - Hospital Course Hospital Course: is a 74 year old female pt with no local MD (saw [facility] physicians in the remote past) who was found down at home. She apparently fell on her porch, onto her R hip, and was unable to get up or get inside for about 3 hours. Owing to the cold weather, when brought to ER her rectal temp was 81 degrees F. As of 1828 her temp was 99.1, and it has normalized from there. Her CT pelvis was neg for fx. On admission her lactate was >7 but normalized. WBC were 8.6 initially, then elevated to 20.8. She denies any pain at rest, but does seem to be in discomfort when she moves. This is a lady who does not like to seek medical attention, who weighs about 75lb and has lost 15 lb in the past 1-2 months alone. She has noticed a mass on the left side of her neck and inside her throat for some time; feeling that doctors could not help and she would not want any intervention, she has not sought any medical attention for that. She has a very difficult time speaking but can say some words. Pt does seem to completely understand when spoken too. Pt did agree to get a CT head and neck which did show a mass which was concerning for metastasis. I explained to her that on the scan there was concern for cancer. Initially she said we could consult surgery just for their opinion, but then she said "I want to go home" and indicated she did not want a surgery consult. She wants to go home on hospice. However, her family is unable to provide 24 hour care, so pt has been evaluated by [facility] and plan is to discharge there today. Pt is denying pain this morning. - Vitals & Intake/Output Vital Signs: Vital Signs Temperature 98.2 F 05/28/19 07:45 Pulse Rate 61 05/28/19 07:45 Respiratory Rate 18 05/28/19 07:45 Blood Pressure 175/73 05/28/19 07:45 O2 Sat by Pulse Oximetry 94 L 05/28/19 07:45 Oxygen-Last Documented O2 Percentage 2 Liters = 28% Intake & Output: Intake & Output 05/25/19 05/26/19 05/27/19 05/28/19 11:59 11:59 11:59 11:59 Intake Total 1398 2955 140 Output Total 600 1000 2650 Balance 798 1955 -2510 Weight 36.287 kg 34.7 kg 34.7 kg - Lab Result Diagrams: 05/26/19 14:16 05/26/19 17:10 Micro Results-Entire Visit: Microbiology 05/25/19 11:10 Urine Culture - Final Catherized NO GROWTH 05/25/19 11:27 Blood Culture - Preliminary Blood NO GROWTH TO DATE 05/25/19 10:55 Blood Culture - Preliminary Blood NO GROWTH TO DATE - Radiology Exams Ordered Rad Exams-Entire Visit: Radiology Procedures Category Date Time Status HEAD W/WO CONTRAST [CT] Routine Exams 05/26/19 08:15 Completed NECK W/WO CONTRAST [CT] Routine Exams 05/26/19 08:15 Completed - Procedures and Test Procedures and Tests throughout Hospitalization: Therapy Orders & Screens 05/25/19 14:16 Oxygen Nasal Cannula 2 lpm Comment: 05/25/19 15:58 ST Screen per Nursing Assess once Comment: Protocol Order Physician Instructions: Greater than [address] Admission Screening Reason For Exam: Triggered on Admission Diagnosis: HYPOTHERMIA CVA/Dyshpagia/Aphasia: No Cognitive Deficits: Yes Dehydration/Nutrition Deficit: Yes Reflux: No Oral-Motor Difficulties: No Pneumonia: No Residential Resident: No Total Points: 8 Discharge Exam General Appearance: no apparent distress, alert, other (lying in bed on her side , covering face with hands) Neurologic Exam: cooperative, depressed mood/affect Respiratory Exam: diminished breath sounds, No crackles/rales, No rhonchi, No wheezing Cardiovascular Exam: regular rate/rhythm, normal heart sounds, No murmur Skin Exam: normal color, warm, dry, No rash Wound Assessment: Skin/Wound Assessment Wound/Incision Assessment Start: 05/25/19 15: 58 Text: Status: Active Freq: Q6H Protocol: Document 05/28/19 08:00 (Rec: 05/28/19 08:13 [id number]) Wound Photo Photo Taken No Final Diagnosis/Problem List - Final Discharge Diagnosis/Problem (1) Neck mass Current Visit: Yes Status: Acute Assessment & Plan: Likely cancer. Pt does not want further evaluation or treatment. [facility] be discharged to [facility], unsure if hospice is following there. She has lost weight, down to about 75 lb. Prognosis is very poor. Code(s): R22.1 - LOCALIZED SWELLING, MASS AND LUMP, NECK (2) Malnutrition Current Visit: Yes Status: Chronic Code(s): E46 - UNSPECIFIED PROTEIN- CALORIE MALNUTRITION - Discharge Disposition: DC TO [facility] Condition: Fair Prescriptions: No Action No Reportable Medications [No Reported Medications] Follow up with: ABBI PUGA MD [Primary Care Provider] - 1 Week
[2019-05-28] MEDS: ENOXAPARIN SODIUM SQ SCH (09:30)
[2019-05-28] MEDS: Merrem 1 GM 1 G in Sodium Chloride 100ML MINI-BAG PLUS 100 ML IV SCH (09:46)
== END 2019-05-28 11:30 | DRG 607 ==
LOC: ED 10:26 → ICU 14:14 → MED SURG 05-27 21:26
PROVIDERS: ADMIT General Practice; ATTEND Family Medicine
DX: R22.1 Localized swelling, mass and lump, neck (principal); E46 Unspecified protein-calorie malnutrition; E87.2 Acidosis; T68.XXXA Hypothermia, initial encounter; R53.1 Weakness; R63.4 Abnormal weight loss; W19.XXXA Unspecified fall, initial encounter; Y92.008 Other place in unspecified non-institutional (private) residence as the place of occurrence of the external cause; X31.XXXA Exposure to excessive natural cold, initial encounter
CPT/HCPCS: 36000; 36415; 36600; 51702; 70470; 70492; 71045; 73521; 80053; 81001; 82375; 82550; 82803; 82962; 83605; 83735; 84132; 85025; 87040; 87086; 93005; 93041; 94760; 96360; 96361; 96365; 99285; 99291; 99292; J0295; J1650; J2270; J3480